=== PATIENT | female | born 1975 | race Caucasian/White ===

== ENCOUNTER 2024-01-21 13:27 | Emergency (ER) | payer MEDICAID ==
[~2024-01-21] VITALS: Ht 154.9 cm; Wt 68.0 kg
[2024-01-21 13:50] VITALS: O2SAT 99
[2024-01-21] MEDS ORDERED: LORA10TA7 PO (14:19)
[2024-01-21] MEDS ORDERED: ONDA4TAB5 PO (14:19)
[2024-01-21 14:36] VITALS: BP 132/78; TEMP 98.4; O2SAT 99
== END 2024-01-21 14:37 | disposition home or self-care (01) ==
LOC: ER 13:35
DX: N95.1 Menopausal and female climacteric states (principal); R11.0 Nausea; R06.02 Shortness of breath; F41.9 Anxiety disorder, unspecified